=== PATIENT | male | born 1975 | race Caucasian/White ===

== ENCOUNTER 2019-04-11 14:44 | Emergency (ER) | payer MEDICAID ==
[~2019-04-11] VITALS: Ht 170.2 cm; Wt 90.0 kg
[2019-04-11] MEDS ORDERED: ASPI-1393 PO (14:53)
[2019-04-11] MEDS ORDERED: METO25TA6 PO (14:53)
[2019-04-11] MEDS ORDERED: HYDR25TA PO (14:53)
[2019-04-11] MEDS ORDERED: LEVETIRACETAM 500MG PREMIX 100 ML IV ONE (15:30)
[2019-04-11 16:00] LABS: EOSINOPHILS % 2.6 % (0.0-5.0); HEMATOCRIT. 44.1 % (42.0-52.0); HEMOGLOBIN. 14.9 g/dL (14.0-18.0); LYMPHOCYTES % 31.9 % (20.0-50.0); MEAN CORPUSCULAR HEMOGLOBIN 28.2 pg (28.0-32.0); MEAN CORPUSCULAR VOLUME 83.7 fL (80.0-94.0); MEAN PLATELET VOLUME 7.9 fl (7.4-10.4); MONOCYTES % 7.7 % (2.0-8.0); NEUTROPHILS % 56.8 % (40.0-76.0); PLATELET 193 x1000/uL (130-400); RED BLOOD CELL COUNT 5.27 mill/uL (4.7-6.1); RED CELL DISTRIBUTION WIDTH 14.3 % (11.6-14.6)
[2019-04-11 16:05] LABS: CHLORIDE 104 mEq/L (98-107)
[2019-04-11 16:10] LABS: ETHANOL BLOOD < 10 mg/dL
[2019-04-11 16:19] LABS: CARBAMAZEPINE < 0.5 ug/mL (4-12); PHENOBARBITAL < 2.1 ug/mL (15.0-40.0); VALPROIC ACID < 3.0 ug/mL (50-100)
[2019-04-11 16:57] LABS: CLARITY URINE CLEAR (CLEAR); COLOR URINE YELLOW (YELLOW); KETONES URINE TRACE (NEGATIVE); LEUKOCYTE ESTERASE URINE NEGATIVE (NEGATIVE); NITRITE URINE NEGATIVE (NEGATIVE); OCCULT BLOOD URINE NEGATIVE (NEGATIVE); PH URINE 5.5 (4.5-8.0); PROTEIN URINE NEGATIVE (NEGATIVE); SPECIFIC GRAVITY URINE 1.025 (1.005-1.030)
[2019-04-11 17:13] LABS: *AMPHETAMINES SCREEN URINE NEGATIVE (NEGATIVE); *BARBITURATES SCREEN URINE NEGATIVE (NEGATIVE); *COCAINE SCREEN URINE NEGATIVE (NEGATIVE); METHADONE URINE SCREEN NEGATIVE (NEGATIVE); OPIATES URINE SCREEN NEGATIVE (NEGATIVE); PHENCYCLIDINE URINE SCREEN NEGATIVE (NEGATIVE)
[2019-04-11 17:14] LABS: *BENZODIAZEPINES SCREEN URINE NEGATIVE (NEGATIVE); CANNABINOID URINE SCREEN NEGATIVE (NEGATIVE)
[2019-04-11] MEDS ORDERED: POTASSIUM CHLORIDE 20MEQ TABLET SR PO ONE (18:00)
[2019-04-11 19:28] VITALS: BP 135/78
== END 2019-04-11 19:39 | disposition home or self-care (01) ==
LOC: ER 14:44
DX: G40.909 Epilepsy, unspecified, not intractable, without status epilepticus (principal); Z87.820 Personal history of traumatic brain injury
CPT/HCPCS: 36415; 70450; 71045; 80053; 80156; 80165; 80184; 80185; 80305; 80320; 81003; 84484; 85025; 93005; 96365; 99284; J1953; G0480

== ENCOUNTER 2019-04-13 20:06 | Emergency (ER) | payer MEDICAID ==
[~2019-04-13] VITALS: Ht 175.3 cm; Wt 88.0 kg
[~2019-04-13 20:06] MED LIST: ASPI-1393 PO; HYDR25TA PO; METO25TA6 PO
[2019-04-13] MEDS ORDERED: LORAZEPAM 1MG TABLET PO ONE (21:15)
[2019-04-13] MEDS ORDERED: DIPHENHYDRAMINE 50MG CAPSULE PO ONE (21:15)
[2019-04-13 21:18] LABS: BASOPHILS % 1.1 % (0.0-2.0); EOSINOPHILS % 3.4 % (0.0-5.0); HEMATOCRIT. 42.2 % (42.0-52.0); HEMOGLOBIN. 14.4 g/dL (14.0-18.0); LYMPHOCYTES % 41.2 % (20.0-50.0); MEAN CORPUSCULAR HEMOGLOBIN 28.6 pg (28.0-32.0); MEAN CORPUSCULAR VOLUME 83.8 fL (80.0-94.0); MEAN PLATELET VOLUME 8.6 fl (7.4-10.4); MONOCYTES % 6.7 % (2.0-8.0); NEUTROPHILS % 47.6 % (40.0-76.0); PLATELET 185 x1000/uL (130-400); RED BLOOD CELL COUNT 5.04 mill/uL (4.7-6.1)
[2019-04-13 21:20] LABS: CHLORIDE 106 mEq/L (98-107)
[2019-04-13 21:23] LABS: ETHANOL BLOOD < 10 mg/dL
[2019-04-13] MEDS ORDERED: DIAZEPAM 2 MG TABLET PO ONE (22:00)
[2019-04-13] MEDS ORDERED: POTASSIUM CHLORIDE 20MEQ TABLET SR PO NR (22:30)
[2019-04-13 23:01] LABS: *AMPHETAMINES SCREEN URINE NEGATIVE (NEGATIVE); *BARBITURATES SCREEN URINE NEGATIVE (NEGATIVE)
[2019-04-13 23:02] LABS: *BENZODIAZEPINES SCREEN URINE NEGATIVE (NEGATIVE); *COCAINE SCREEN URINE NEGATIVE (NEGATIVE); CANNABINOID URINE SCREEN NEGATIVE (NEGATIVE); METHADONE URINE SCREEN NEGATIVE (NEGATIVE); OPIATES URINE SCREEN NEGATIVE (NEGATIVE); PHENCYCLIDINE URINE SCREEN NEGATIVE (NEGATIVE)
[2019-04-14] VITALS: BP 130/82
== END 2019-04-14 00:55 | disposition home or self-care (01) ==
LOC: ER 20:06
DX: G40.909 Epilepsy, unspecified, not intractable, without status epilepticus (principal); E87.6 Hypokalemia
CPT/HCPCS: 36415; 80053; 80305; 80320; 82962; 85025; 99284; Q0163; G0480

== ENCOUNTER 2020-01-28 12:13 | Emergency (ER) | payer MEDICAID, OTHER ==
[~2020-01-28] VITALS: Ht 170.2 cm; Wt 120.5 kg
[~2020-01-28 12:13] MED LIST changes: -ASPI-1393 PO; +ASPI-1497 PO
[2020-01-28] MEDS ORDERED: NITROGLYCERINE (12:21)
[2020-01-28 12:22] VITALS: BP 153/90
== END 2020-01-28 13:21 | disposition home or self-care (01) ==
LOC: ER 12:29
DX: T16.1XXA Foreign body in right ear, initial encounter (principal); X58.XXXA Exposure to other specified factors, initial encounter; Y93.89 Activity, other specified; Y92.89 Other specified places as the place of occurrence of the external cause; I11.9 Hypertensive heart disease without heart failure; E11.9 Type 2 diabetes mellitus without complications; J45.909 Unspecified asthma, uncomplicated; E78.00 Pure hypercholesterolemia, unspecified; G40.909 Epilepsy, unspecified, not intractable, without status epilepticus; I25.2 Old myocardial infarction; Z79.899 Other long term (current) drug therapy
CPT/HCPCS: 69200; 99284

== ENCOUNTER 2021-02-12 19:25 | Emergency (ER) | payer MEDICAID ==
[~2021-02-12] VITALS: Ht 172.7 cm; Wt 91.0 kg
[~2021-02-12 19:25] MED LIST changes: +NITROGLYCERINE
[2021-02-12 23:00] VITALS: BP 127/80
== END 2021-02-12 23:05 | disposition left against medical advice (07) ==
LOC: ER 19:25
DX: E11.65 Type 2 diabetes mellitus with hyperglycemia (principal); I10 Essential (primary) hypertension; Z53.21 Procedure and treatment not carried out due to patient leaving prior to being seen by health care provider
CPT/HCPCS: 82962; 93005; 99283

== ENCOUNTER 2021-07-22 12:28 | Emergency (ER) | payer MEDICAID ==
[~2021-07-22] VITALS: Ht 170.2 cm; Wt 90.0 kg
[~2021-07-22 12:28] MED LIST changes: -ASPI-1497 PO; +ATOR40TA70 MT; +CYCL10TA7 MT; +GLIP5TAB12 MT; -HYDR25TA PO; +INSLIS SUBCUT; +INSU100C6 SQ; +LANTUSUD SUBCUT; +METF-416 MT; -METO25TA6 PO; -NITROGLYCERINE
[2021-07-22] MEDS ORDERED: HYDROCODONE/ACETAMINOPHEN 5/325MG TABLET PO ONE (13:45)
[2021-07-22 14:14] VITALS: BP 182/106
[2021-07-22] MEDS ORDERED: NAPR-1176 MT (14:27)
[2021-07-22] MEDS ORDERED: HYDR-4001 MT (14:27)
== END 2021-07-22 16:49 | disposition home or self-care (01) ==
LOC: ER 12:28
DX: M25.561 Pain in right knee (principal); G40.909 Epilepsy, unspecified, not intractable, without status epilepticus; E11.9 Type 2 diabetes mellitus without complications; I10 Essential (primary) hypertension; E78.00 Pure hypercholesterolemia, unspecified; Z87.828 Personal history of other (healed) physical injury and trauma; Z98.890 Other specified postprocedural states; Z79.4 Long term (current) use of insulin; Z91.030 Bee allergy status; Z91.018 Allergy to other foods
CPT/HCPCS: 73562; 82962; 99283; L1830

== ENCOUNTER 2021-08-12 19:01 | Emergency (ER) | payer MEDICAID ==
[~2021-08-12] VITALS: Ht 177.8 cm; Wt 75.0 kg
[~2021-08-12 19:01] MED LIST changes: +HYDR-4001 MT; +NAPR-1176 MT
[2021-08-12 20:18] LABS: BASOPHILS % 1.3 % (0.0-2.0); EOSINOPHILS % 1.7 % (0.0-5.0); HEMATOCRIT. 42.4 % (42.0-52.0); HEMOGLOBIN. 14.6 g/dL (14.0-18.0); LYMPHOCYTES % 36.4 % (20.0-50.0); MEAN CORPUSCULAR HEMOGLOBIN 27.5 pg (28.0-32.0); MEAN CORPUSCULAR VOLUME 79.7 fL (80.0-94.0); MEAN PLATELET VOLUME 8.2 fl (7.4-10.4); MONOCYTES % 6.8 % (2.0-8.0); NEUTROPHILS % 53.8 % (40.0-76.0); PLATELET 182 x1000/uL (130-400); RED BLOOD CELL COUNT 5.32 mill/uL (4.7-6.1); RED CELL DISTRIBUTION WIDTH 13.5 % (11.6-14.6)
[2021-08-12 20:20] LABS: CHLORIDE 105 mEq/L (98-107)
[2021-08-12 20:25] LABS: ETHANOL BLOOD < 10 mg/dL
[2021-08-12] MEDS ORDERED: NITROGLYCERIN 0.4MG TABLET SL SL ONE (21:30)
[2021-08-12 21:59] LABS: *AMPHETAMINES SCREEN URINE NEGATIVE (NEGATIVE); *BARBITURATES SCREEN URINE NEGATIVE (NEGATIVE); *BENZODIAZEPINES SCREEN URINE NEGATIVE (NEGATIVE); *COCAINE SCREEN URINE NEGATIVE (NEGATIVE); METHADONE URINE SCREEN NEGATIVE (NEGATIVE); OPIATES URINE SCREEN NEGATIVE (NEGATIVE); PHENCYCLIDINE URINE SCREEN NEGATIVE (NEGATIVE)
[2021-08-12 22:01] LABS: CANNABINOID URINE SCREEN NEGATIVE (NEGATIVE)
[2021-08-12] MEDS ORDERED: FAMOTIDINE 20MG/2ML VIAL IV STA (22:06)
[2021-08-12] MEDS ORDERED: MAGNESIUM/ALUMINUM HYDROXIDE/SIMETHICONE 30ML UDC PO STA (22:06)
[2021-08-12] MEDS ORDERED: FAMO-134 MT (22:55)
[2021-08-12 23:03] VITALS: BP 164/104
== END 2021-08-12 23:16 | disposition home or self-care (01) ==
LOC: ER 19:01
DX: R07.2 Precordial pain (principal); I10 Essential (primary) hypertension; E11.9 Type 2 diabetes mellitus without complications; G40.909 Epilepsy, unspecified, not intractable, without status epilepticus; E78.00 Pure hypercholesterolemia, unspecified; Z79.899 Other long term (current) drug therapy; Z79.4 Long term (current) use of insulin; Z79.84 Long term (current) use of oral hypoglycemic drugs; Z88.8 Allergy status to other drugs, medicaments and biological substances; Z91.030 Bee allergy status; Z91.018 Allergy to other foods
CPT/HCPCS: 36415; 71045; 80053; 80305; 80320; 83690; 83880; 84484; 85025; 93005; 96374; 99285; J3490; G0480